=== PATIENT | female | born 1955 | race Caucasian/White ===

== ENCOUNTER 2022-10-12 13:51 | Emergency (ER) | payer MEDICARE, SELFPAY ==
[2022-10-12 13:52] VITALS: BP 116/68; PULSE 79; RESP 18; TEMP 36.6; O2SAT 96; BMI 36.9
--- NOTE | 2022-10-12 14:17 | HMH.EDGENADL ---
Discharge Plan Disposition Patient Disposition: Home, Self-Care Condition: Good Prescriptions Prescriptions: No Action furosemide 20 mg tablet 20 mg PO DAILY aspirin [Aspir-Low] 81 mg tablet,delayed release (DR/EC) 81 mg PO DAILY docusate sodium [Doc-Q-Lace] 100 mg capsule 100 mg PO QHS PRN ergocalciferol (vitamin D2) 50,000 unit capsule 50,000 unit PO QWEEK fluticasone propionate 50 mcg/actuation spray,suspension 2 spray INTRANASAL DAILY umeclidinium [Incruse Ellipta] 62.5 mcg/actuation blister with device 1 inh INHALATION Q24H insulin glargine [Lantus Solostar U-100 Insulin] 100 unit/mL (3 mL) insulin pen 25 unit SUB-Q QHS metoprolol tartrate 25 mg tablet 12.5 mg PO BID multivitamin tablet 1 tab PO QAM pantoprazole 40 mg tablet,delayed release (DR/EC) 40 mg PO DAILY ropinirole 3 mg tablet 3 mg PO QHS insulin regular human [Novolin R Regular U-100 Insuln] 100 unit/mL solution 5 sliding scale dose IM ONCE PRN tacrolimus 0.5 mg capsule 0.5 mg PO DAILY Referrals Follow up/Referrals: Linette Torrez APRN [Primary Care Provider] - See instructions Activity Restrictions/Add. Instructions Additional Instructions/Restrictions: Continue taking the antibiotic. Follow-up with your primary care provider in the office next week. medical review coordinator should be contacting you to arrange follow-up appointment at the transplant clinic. Clinical Impressions Clinical Impression: Acute bronchitis Instructions Patient Instructions: DI for Acute Bronchitis Discharge ED Provider: Harvey Nunez General Adult HPI General Chief complaint: Weakness Stated complaint: cough wheezing tired Time Seen by Provider: 10/12/22 14:03 History of Present Illness HPI narrative: Patient states that she was sent to the emergency department by her primary care provider, Linette Torrez NP. States that she has been sick for 5 weeks. She has a cough producing white to yellow to green sputum. She says that she has fevers overnight . Her whole body hurts. States that she initially saw her former primary care provider, Dr. Machado, but says that she had a falling out with him. She says that she had a cough when she saw him and was told that she should not be there. She therefore changed primary care providers and began seeing Linette Torrez. She says that she has been treated with 2 courses of antibiotics, currently still taking an antibiotic. She says that she has had a chest x-ray or 2 at [facility] in [place]. She says initially was told she had bronchitis, but this past Saturday, 5 days ago, she says that Linette told her she thought she had pneumonia. She did not have a chest x-ray that day. States she had a negative test for COVID and flu on that day. She says she saw her today because she was not improving and was told to come to the emergency department because Linette thought that she needed in the admitted to the hospital for a couple of days for antibiotics. The patient has had a prior liver transplant. Related Data Home Medications Medication Instructions Recorded Confirmed aspirin 81 mg tablet,delayed 81 mg PO DAILY heart health 04/10/18 10/12/22 release (Aspir-Low) docusate sodium 100 mg capsule 100 mg PO QHS PRN 04/10/18 (Doc-Q-Lace) ergocalciferol (vitamin D2) 1,250 50,000 unit PO QWEEK 04/10/18 mcg (50,000 unit) capsule fluticasone propionate 50 2 spray intranasal DAILY 04/10/18 mcg/actuation nasal spray,suspension insulin glargine 100 unit/mL (3 25 unit SQ QHS 04/10/18 mL) subcutaneous pen (Lantus Solostar U-100 Insulin) metoprolol tartrate 25 mg tablet 12.5 mg PO BID heart 04/10/18 10/12/22 multivitamin 1 tab PO QAM 04/10/18 pantoprazole 40 mg tablet,delayed 40 mg PO DAILY GERD 04/10/18 10/12/22 release ropinirole 3 mg tablet 3 mg PO QHS 04/10/18 umeclidinium 62.5 mcg/actuation 1 inh inhalation Q24H
--- NOTE | 2022-10-12 14:25 | XR_ITS ---
FINAL REPORT TECHNIQUE: Chest PA & Lateral CLINICAL HISTORY: cough FINDINGS: 2 views of the chest were performed. The heart size is normal. The mediastinum is within normal limits. There is elevation of the right hemidiaphragm. There is no acute cardiopulmonary process. There are no pleural effusions. There is no pneumothorax. The bony thorax appears intact. There are surgical clips in the right axilla. IMPRESSION: No acute cardiopulmonary process. Reviewed, Interpreted and Dictated by Gavin Summers MD Transcribed by Rodney Cruz Authenticated and [facility]
[2022-10-12 14:32] LABS: Basophils # 0.1 K/mm3 (0-0.2); Basophils % 0.8 % (0.1-2.0); Eosinophils # 0.5 K/mm3 (0.0-0.4); Eosinophils % 5.5 % (0.1-12.0); Hematocrit 42.9 % (37.0-47.0); Hemoglobin 14.2 g/dL (12.2-16.2); Lymphocytes # 2.2 K/mm3 (0.7-4.5); Lymphocytes % 26.2 % (10-50); Mean Corpuscular Hemoglobin 29.7 pg (27.0-31.2); Mean Platelet Volume 8.4 fl (7.4-10.4); Monocytes # 0.5 K/mm3 (0.1-1.0); Monocytes % 6.4 % (1.7-9.3); Neutrophils # 5.1 K/mm3 (1.8-7.8); Neutrophils % 61.1 % (37.0-80.0); Platelet Count 263 K/mm3 (142-424); Red Blood Count 4.77 M/mm3 (4.20-5.40); Red Cell Distribution Width 14.9 % (11.5-17.5); White Blood Count 8.4 K/mm3 (4.8-10.8)
--- NOTE | 2022-10-12 14:32 | PC.NURSE ---
pt to radiology
[2022-10-12 14:34] LABS: Chloride 100 mmol/L (98-107); Potassium 4.2 mmoL/L (3.5-5.1); Sodium 138 mmol/L (136-145)
[2022-10-12 14:37] LABS: Alanine Aminotransferase 28 U/L (12-78); Albumin Level 3.8 g/dl (3.5-5.0); Alkaline Phosphatase 183 U/L (38-126); Anion Gap 16.2 mEq/L (5-15); Aspartate Amino Transferase 42 U/L (14-36); Bilirubin,Total 1.1 mg/dl (0.2-1.3); Blood Urea Nitrogen 12 mg/dl (7-17); Carbon Dioxide 26 mmol/L (22.0-30.0); Creatinine Clearance Estimated 78 mL/min (50-200); Estimated Glomerular Filt Rate 49 ml/min (>60); GFR (African American) 60 ML/MIN (>60); Total Protein,Serum 7.8 g/dl (6.3-8.2)
[2022-10-12 14:38] LABS: Calcium 9.9 mg/dl (8.4-10.2); Glucose 207 mg/dl (74-100)
[2022-10-12 14:55] LABS: Coronavirus 19, PCR Not Detected (NotDetected); Influenza A, PCR Not Detected (NotDetected); Influenza B, PCR Not Detected (NotDetected)
[2022-10-12 15:15] LABS: Lactic Acid 2.1 mmol/L (0.7-2.1)
[2022-10-12 15:19] VITALS: O2SAT 96
[2022-10-12 15:31] VITALS: BP 120/69; PULSE 76; RESP 18; O2SAT 94
--- NOTE | 2022-10-12 15:38 | PC.NURSE ---
checked on pt at this time, family at BS. Pt states no needs at this time, call light within reach
--- NOTE | 2022-10-12 15:47 | PC.NURSE ---
BHARGAV GARCIA speaking with [facility]
--- NOTE | 2022-10-12 15:48 | PC.NURSE ---
Dr Nunez talking to [facility] Dr Pinto about patient.
[2022-10-12 16:10] VITALS: BP 122/62; PULSE 74; RESP 18; TEMP 36.6; O2SAT 96
[2022-10-12 18:45] LABS: Reflex Lactic Add Lactic Reflex
== END 2022-10-12 16:10 | disposition home or self-care (01) ==
PROVIDERS: Emergency Provider Emergency Medicine; PCP Nurse Practitioner Family
DX: J40 Bronchitis, not specified as acute or chronic (principal)
CPT/HCPCS: 71046; 80053; 83605; 85025; 87040; 99284; C9803; U0003; U0005

== ENCOUNTER → 2023-03-30 15:52 | Outpatient (CLI) | payer MEDICARE, SELFPAY ==
[2023-03-30 16:39] LABS: Blood Urea Nitrogen 13 mg/dl (7-17); Estimated Glomerular Filt Rate 41 ml/min (>60); GFR (African American) 49 ML/MIN (>60)
== END ==
PROVIDERS: PCP Nurse Practitioner Family; Visit Provider Nurse Practitioner Family
DX: E11.69 Type 2 diabetes mellitus with other specified complication (principal); E66.9 Obesity, unspecified; Z68.38 Body mass index [BMI] 38.0-38.9, adult; Z79.4 Long term (current) use of insulin
CPT/HCPCS: 82565; 84520

== ENCOUNTER → 2023-04-02 12:23 | Outpatient (CLI) | payer MEDICARE, SELFPAY ==
--- NOTE | 2023-04-02 12:29 | CA_ITS ---
FINAL REPORT CLINICAL HISTORY: DIZZINESS FINDINGS: An ultrasound of the carotid arteries was performed. Duplex Doppler evaluation with spectral analysis was performed. The peak systolic velocity of the right common carotid artery is 95 cm/s. The peak systolic velocity of the right internal carotid artery is 135 cm/s and end diastolic velocity 31 cm/s. A small amount of plaque is present. The right external carotid artery is patent. The right vertebral artery is patent with antegrade flow. ICA/CCA ratio: 1.7 The peak systolic velocity of the left common carotid artery is 137 cm/s. The peak systolic velocity of the left internal carotid artery is 113 cm/s and end diastolic velocity 27 cm/s. A small amount of plaque is present. The left external carotid artery is patent. The left vertebral artery is patent with antegrade flow. ICA/CCA ratio: 1.0 Bilateral patent vertebral arteries with antegrade flow. IMPRESSION: Less than 50% bilateral carotid stenosis. Reviewed, Interpreted and Dictated by Marcie Valle MD Transcribed by Rodney Cruz Authenticated and [facility]
--- NOTE | 2023-04-02 13:35 | MR_ITS ---
FINAL REPORT TECHNIQUE: Multiplanar MR, without and with gadolinium enhancement CLINICAL HISTORY: dizziness, gaze palsy; special attn brain stem x 3 months 21 ml prohance FINDINGS: Diffusion sequences show no signal abnormality to indicate acute infarct. There is mild age-appropriate atrophy. There are few scattered white matter signal changes, likely due to mild chronic microvascular ischemia. No mass, hemorrhage or edema is seen. Ventricles are normal. Major vascular flow voids are intact. The brainstem and cerebellum are unremarkable. Following contrast administration, no mass or abnormal enhancement is seen. IMPRESSION: Atrophy and chronic the ischemic changes. Reviewed, Interpreted and Dictated by Marcie Valle MD Transcribed by Kimberly Arambula Authenticated and [facility]
--- NOTE | 2023-04-02 13:39 | MR_ITS ---
FINAL REPORT TECHNIQUE: 3-D [id number] sequences without contrast CLINICAL HISTORY: eval posterior circulation FINDINGS: The distal internal carotid arteries are unremarkable. MCAs and ACAs are unremarkable. Basilar artery is widely patent. surgical training specialist are intact. No aneurysm is seen. IMPRESSION: Unremarkable MRA head Reviewed, Interpreted and Dictated by Marcie Valle MD Transcribed by Kimberly Arambula Authenticated and [facility]
== END ==
PROVIDERS: PCP Nurse Practitioner Family; Visit Provider Nurse Practitioner Family
DX: R42 Dizziness and giddiness (principal); H51.0 Palsy (spasm) of conjugate gaze; R41.3 Other amnesia; R51.9 Headache, unspecified; Z85.3 Personal history of malignant neoplasm of breast; E11.69 Type 2 diabetes mellitus with other specified complication; E66.9 Obesity, unspecified; E72.20 Disorder of urea cycle metabolism, unspecified; I11.9 Hypertensive heart disease without heart failure; R09.02 Hypoxemia; Z94.4 Liver transplant status; Z99.81 Dependence on supplemental oxygen; Z79.4 Long term (current) use of insulin; Z68.38 Body mass index [BMI] 38.0-38.9, adult
CPT/HCPCS: 70544; 70553; 93880; A9576

== ENCOUNTER → 2023-04-10 07:46 | Outpatient (CLI) | payer MEDICARE, SELFPAY ==
--- NOTE | 2023-04-10 07:46 | MR_ITS ---
FINAL REPORT CLINICAL HISTORY: eval for CVT, noncontrib MRI, MRA dizziness, headaches, hallucinations 21ml prohance FINDINGS: Multiple projection images of the brain venous vasculature were obtained. The major dural sinuses have an unremarkable appearance. No venous abnormality is identified. IMPRESSION: Unremarkable MR venogram of the head. Authenticated and [facility]
--- NOTE | 2023-04-10 07:46 | MR_ITS ---
FINAL REPORT CLINICAL HISTORY: eval for stenosis FINDINGS: Multiple projection images of the neck arterial vasculature were obtained without contrast. The raw data images were also reviewed. The right common carotid artery has an unremarkable appearance without evidence of stenosis or occlusion. The right internal carotid artery has an unremarkable appearance without evidence of stenosis or occlusion. The right external carotid artery is patent. The right vertebral artery is patent without evidence of stenosis. The left common carotid artery has an unremarkable appearance without evidence of stenosis or occlusion. The left internal carotid artery is patent without evidence of stenosis or occlusion. The left external carotid artery is patent. The left vertebral artery is patent without evidence of stenosis. IMPRESSION: Unremarkable MR angiogram of the neck without evidence of stenosis or occlusion. Authenticated and [facility]
[2023-04-10 08:21] LABS: Chloride 100 mmol/L (98-107); Potassium 4.1 mmoL/L (3.5-5.1); Sodium 137 mmol/L (136-145)
[2023-04-10 08:24] LABS: Alanine Aminotransferase 33 U/L (12-78); Albumin Level 3.4 g/dl (3.5-5.0); Alkaline Phosphatase 185 U/L (38-126); Anion Gap 15.1 mEq/L (5-15); Aspartate Amino Transferase 58 U/L (14-36); Bilirubin,Total 0.7 mg/dl (0.2-1.3); Blood Urea Nitrogen 18 mg/dl (7-17); Carbon Dioxide 26 mmol/L (22.0-30.0); Estimated Glomerular Filt Rate 49 ml/min (>60); GFR (African American) 60 ML/MIN (>60); Globulin 3.3 g/dL (1.3-3.2); Total Protein,Serum 6.7 g/dl (6.3-8.2)
[2023-04-10 08:25] LABS: Ammonia 41 umol/L (9-30); Calcium 9.8 mg/dl (8.4-10.2); Glucose 183 mg/dl (74-100)
[2023-04-10 08:30] LABS: Basophils % 0.5 % (0.1-2.0); C-Reactive Protein 4.8 mg/L (0-4); Eosinophils # 0.3 K/mm3 (0.0-0.4); Eosinophils % 5.9 % (0.1-12.0); Hematocrit 38.9 % (37.0-47.0); Hemoglobin 12.7 g/dL (12.2-16.2); Lymphocytes # 1.4 K/mm3 (0.7-4.5); Lymphocytes % 29.4 % (10-50); Mean Corpuscular HGB Conc 32.7 g/dL (31.8-35.4); Mean Corpuscular Hemoglobin 28.8 pg (27.0-31.2); Mean Corpuscular Volume 88.2 fl (81-99); Mean Platelet Volume 8.1 fl (7.4-10.4); Monocytes # 0.4 K/mm3 (0.1-1.0); Monocytes % 7.7 % (1.7-9.3); Neutrophils # 2.7 K/mm3 (1.8-7.8); Neutrophils % 56.4 % (37.0-80.0); Platelet Count 232 K/mm3 (142-424); Red Blood Count 4.41 M/mm3 (4.20-5.40); Red Cell Distribution Width 14.8 % (11.5-17.5); White Blood Count 4.7 K/mm3 (4.8-10.8)
[2023-04-10 08:56] LABS: Thyroid Stimulating Hormone 1.92 uIU/mL (0.465-4.68)
[2023-04-10 09:00] LABS: Ferritin 120 ng/ml (11.1-264)
[2023-04-10 09:07] LABS: Hemoglobin A1C 7.1 % (4.0-6.0)
[2023-04-10 09:42] LABS: Erythrocyte Sedimentation Rate 84 mm/hr (0-30)
[2023-04-10 10:00] LABS: Vitamin B12 736 pg/mL (239-931)
[2023-04-11 15:05] LABS: Rapid Plasma Reagin Ab Titer Non Reactive (NonRea<1:1)
[2023-04-13 21:04] LABS: Antinuclear Antibodies (ANA) Negative
[2023-04-14 04:07] LABS: Vitamin B1 146.4 nmol/L (66.5-200.0)
== END ==
PROVIDERS: PCP Nurse Practitioner Family; Visit Provider Nurse Practitioner Family
DX: R42 Dizziness and giddiness (principal); H51.0 Palsy (spasm) of conjugate gaze; R41.3 Other amnesia; R51.9 Headache, unspecified; E11.69 Type 2 diabetes mellitus with other specified complication; E66.9 Obesity, unspecified; E72.20 Disorder of urea cycle metabolism, unspecified; I11.9 Hypertensive heart disease without heart failure; R09.02 Hypoxemia; Z85.3 Personal history of malignant neoplasm of breast; Z94.4 Liver transplant status; Z99.81 Dependence on supplemental oxygen; Z86.39 Personal history of other endocrine, nutritional and metabolic disease; R60.0 Localized edema; Z79.4 Long term (current) use of insulin; Z68.34 Body mass index [BMI] 34.0-34.9, adult
CPT/HCPCS: 36415; 70546; 70547; 80053; 82140; 82565; 82607; 82728; 82746; 83036; 84425; 84443; 84520; 85025; 85651; 86038; 86140; 86225; 86235; 86593; 94762; A9576

== ENCOUNTER 2023-10-22 13:21 | Emergency (ER) | payer MEDICARE, SELFPAY ==
[2023-10-22] VITALS (24 sets, daily range): BP systolic 106–153; BP diastolic 57–91; PULSE 79–118; RESP 20; TEMP 36.7; O2SAT 95–99; BMI 37.0
--- NOTE | 2023-10-22 13:30 | ECG_ITS ---
APPROVED REPORT Exam: Resting ECG HR:110 bpm ECG Measurements Heart Rate 110 AXES QRSd 93 QRS 0 QT 334 T 62 QTc 399 Conclusion ATRIAL FIBRILLATION WITH RAPID VENTRICULAR RESPONSE ABNORMAL RHYTHM ECG UNCONFIRMED REPORT Electronically signed by : Agustín Vaughn MD 10/23/2023 18:26:24
--- NOTE | 2023-10-22 13:34 | PC.NURSE ---
Limb alert band placed on patients right wrist.
--- NOTE | 2023-10-22 14:01 | XR_ITS ---
PROCEDURE INFORMATION: Exam: XR Chest Exam date and time: 10/22/2023 4:27 PM Age: 68 years old Clinical indication: Shortness of breath and other: Chest pain; Additional info: Choking earlier, SOA TECHNIQUE: Imaging protocol: Radiologic exam of the chest. Views: 2 views. COMPARISON: CR XR CHEST 2V 10/12/2022 2:21 PM FINDINGS: Lungs: No evidence of acute pulmonary disease or infiltrates; lung meza appear clear. Pleural spaces: No evidence of pleural effusion, pneumothorax, or pleural thickening in the visualized pleural spaces. Heart/Mediastinum: No evidence of mediastinal widening or cardiac silhouette enlargement; the mediastinum and heart appear within normal limits for contour and size. Diaphragm: There is elevation of the right hemidiaphragm. Bones/joints: There are degenerative changes of the thoracic spine. Soft tissues: Right axillary surgical clips. IMPRESSION: No dense parenchymal consolidation, pleural effusion, or pneumothorax.
--- NOTE | 2023-10-22 14:31 | HMH.EDGENADL ---
Discharge Plan Disposition Patient Disposition: Home, Self-Care Condition: Good Prescriptions Prescriptions: No Action furosemide 20 mg tablet 20 mg PO DAILY aspirin [Aspir-Low] 81 mg tablet,delayed release (DR/EC) 81 mg PO DAILY docusate sodium [Doc-Q-Lace] 100 mg capsule 100 mg PO QHS PRN fluticasone propionate 50 mcg/actuation spray,suspension 2 spray INTRANASAL DAILY metoprolol tartrate 25 mg tablet 12.5 mg PO BID multivitamin tablet 1 tab PO QAM insulin regular human [Novolin R Regular U100 Insulin] 100 unit/mL solution 5 sliding scale dose IM ONCE PRN tacrolimus 0.5 mg capsule 0.5 mg PO DAILY insulin glargine [Lantus Solostar U-100 Insulin] 100 unit/mL (3 mL) insulin pen 28 unit SUB-Q QHS clopidogrel 75 mg tablet 75 mg PO DAILY Patient Comments: TAKE 1 TABLET BY MOUTH IN THE MORNING ropinirole 4 mg tablet 4 mg PO DAILY Patient Comments: TAKE ONE (1) TABLET EVERY DAY BY MOUTH IN THE EVENING. Referrals Follow up/Referrals: Linette Torrez APRN [Primary Care Provider] - Enter time for follow up Activity Restrictions/Add. Instructions Additional Instructions/Restrictions: You have new onset atrial fibrillation. This causes an increased risk of stroke. Given your history of liver transplant and and the fact that you take both aspirin and Plavix, you are at increased risk of bleeding with additional anticoagulation. The decision for anticoagulation is best made by your cardiology/liver team. I recommend that you follow-up with them as soon as possible. Recommend increasing your metoprolol dosing to 25 mg twice daily with goal of keeping her heart rate below 110. Monitor for low blood pressure and low heart rate. If your heart rate continues to be consistently over 110 recommend returning to ER or seeing your primary teams. Please return emergency department if you develop any new or worsening symptoms or become concerned for your health. Clinical Impressions Clinical Impression: New onset a-fib, SOB (shortness of breath) Discharge ED Provider: Alejo Pool Adult HPI <Wade Francisco MD - Last Filed: 10/22/23 17:21> General Chief complaint: Shortness of Breath/Dyspnea Stated complaint: SHORTNESS OF BREATH Time Seen by Provider: 10/22/23 13:27 Mode of Arrival: EMS Source of Information: Patient and EMS Limitations: No Limitations Description of Symptoms (Recalled from ER Triage Doc. by RN): Patient states she was eating lunch and choked on her lemonade, states her coworker gave her the heimlich and since she has been short of breath. Patient reports she has been having some chest pain over the last couple days but has not been seen for it. History of Present Illness HPI narrative: The patient presents with a chief complaint of shortness of breath and elevated heart rate following a choking incident during lunch. They report having a cold approximately four weeks ago and have not felt well since. The patient experienced difficulty swallowing medication this morning and has had constant chest pain for the last three days, centrally located and sometimes radiating to the shoulder. They also report shortness of breath and pain upon taking deep breaths. The patient has been coughing up thick mucus without hemoptysis. 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 They are currently taking Clopidogrel and aspirin for atrial fibrillation management. Additional symptoms include recent disorientation observed by the patient's friend and severe pain in their side for the past two weeks, which has caused them to cry. No specific event or injury has been reported that may have triggered these symptoms. Related Data Home Medications Medication Instructions Recorded Confirmed
[2023-10-22 15:03] LABS: Basophils # 0.1 K/mm3 (0-0.2); Basophils % 0.5 % (0.1-2.0); Eosinophils # 0.2 K/mm3 (0.0-0.4); Hemoglobin 13.3 g/dL (12.2-16.2); Lymphocytes # 1.4 K/mm3 (0.7-4.5); Lymphocytes % 14.7 % (10-50); Mean Corpuscular HGB Conc 33.2 g/dL (31.8-35.4); Mean Corpuscular Hemoglobin 29.4 pg (27.0-31.2); Mean Corpuscular Volume 88.5 fl (81-99); Mean Platelet Volume 8.2 fl (7.4-10.4); Monocytes # 0.5 K/mm3 (0.1-1.0); Monocytes % 5.3 % (1.7-9.3); Neutrophils # 7.4 K/mm3 (1.8-7.8); Neutrophils % 77.4 % (37.0-80.0); Platelet Count 246 K/mm3 (142-424); Red Blood Count 4.52 M/mm3 (4.20-5.40); Red Cell Distribution Width 15.2 % (11.5-17.5); White Blood Count 9.6 K/mm3 (4.8-10.8)
[2023-10-22 15:04] LABS: Chloride 103 mmol/L (98-107); Potassium 4.1 mmoL/L (3.5-5.1); Sodium 134 mmol/L (136-145)
[2023-10-22 15:07] LABS: Alanine Aminotransferase 20 U/L (12-78); Albumin Level 3.5 g/dl (3.5-5.0); Albumin/Globulin Ratio 0.9 (1.1-1.8); Alkaline Phosphatase 207 U/L (38-126); Anion Gap 10.1 mEq/L (5-15); Aspartate Amino Transferase 40 U/L (14-36); Bilirubin,Total 1.1 mg/dl (0.2-1.3); Blood Urea Nitrogen 12 mg/dl (7-17); Carbon Dioxide 25 mmol/L (22.0-30.0); Creatinine Clearance Estimated 71 mL/min (50-200); Estimated Glomerular Filt Rate 45 ml/min (>60); GFR (African American) 54 ML/MIN (>60); Globulin 3.8 g/dL (1.3-3.2); INR 1.07 (0.9-1.1); Prothrombin Time 11.5 seconds (10.1-12.5); Total Protein,Serum 7.3 g/dl (6.3-8.2)
[2023-10-22 15:08] LABS: Calcium 8.7 mg/dl (8.4-10.2); Glucose 250 mg/dl (74-100)
[2023-10-22 15:17] LABS: NT Pro Brain Natriuretic Pep. 2130 pg/mL (0-125)
[2023-10-22 15:20] LABS: Troponin I < 0.01 ng/ml (0.00-0.034)
[2023-10-22 15:25] LABS: Free T4 (Free Thyroxine) 1.68 ng/dl (0.78-2.19)
[2023-10-22 17:30] LABS: D-Dimer 1.17 ug/mL (0.0-0.5)
--- NOTE | 2023-10-22 17:54 | CT_ITS ---
PROCEDURE INFORMATION: Exam: CTA Chest With Contrast Exam date and time: 10/22/2023 6:39 PM Age: 68 years old Clinical indication: Shortness of breath and other: Sp, elevated dimer; Additional info: SOA, cp, elevated dimer, new afib TECHNIQUE: Imaging protocol: Computed tomographic angiography of the chest with contrast. Exam focused on the arteries. 3D rendering (Not supervised by radiologist): MIP and/or 3D reconstructed images were created by the technologist. Radiation optimization: All CT scans at this facility use at least one of these dose optimization techniques: automated exposure control; mA and/or kV adjustment per patient size (includes targeted exams where dose is matched to clinical indication); or iterative reconstruction. Contrast material: ISOVUE 370; Contrast volume: 70 ml; Contrast route: INTRAVENOUS (IV); REPORTING DATA: Count of CT and Cardiac NM exams in prior 12 months: This patient has received 0 known CTs and 0 known cardiac nuclear medicine studies in the 12 months prior to the current study. COMPARISON: CR XR CHEST 2V 10/22/2023 4:27 PM FINDINGS: Pulmonary arteries: There is suboptimal opacification of pulmonary arteries due to contrast bolus timing. Aorta: Regions of atherosclerotic vascular calcification involving the aortic arch. Lungs: Focal cluster of juxtapleural and pleural-based nodularities 4 mm or less in size. Right lung apex. Findings most likely inflammatory in etiology. For patients at low risk (minimal or absent history of smoking and of other known risk factors), no routine follow-up is indicated. For patients at high risk (history of smoking or of other known risk factors), consider optional CT Chest at 12 months. (Reference: Tre). Postinflammatory scarring right middle lobe. Associated minimal pleural reactive change. Pleural spaces: See Lungs finding. Heart: Unremarkable. No cardiomegaly. No pericardial effusion. Coronary arteries: Coronary artery calcification Lymph nodes: Unremarkable. No enlarged lymph nodes. Bones/joints: Unremarkable. No acute fracture. Soft tissues: Surgical clips in the right axilla. Markers placed in the retroareolar region right breast. IMPRESSION: 1. No large or central pulmonary embolus. Evaluation of the peripheral pulmonary arteries is limited. 2. Focal cluster of juxtapleural and pleural-based nodularities 4 mm or less in size. Right lung apex. Findings most likely inflammatory in etiology. For patients at low risk (minimal or absent history of smoking and of other known risk factors), no routine follow-up is indicated. For patients at high risk (history of smoking or of other known risk factors), consider optional CT Chest at 12 months. (Reference: Tre). 3. Postinflammatory scarring right middle lobe. Associated minimal pleural reactive change. REFERENCES: Tre Barraza, et al. Guidelines for Management of Incidental Pulmonary Nodules Detected on CT Images: From the Fleischner Society 2017. Radiology. 2017;284(1):228-243.
--- NOTE | 2023-10-22 18:17 | PC.NURSE ---
pt to restroom
== END 2023-10-22 20:09 | disposition home or self-care (01) ==
LOC: ER 14:02 → CATHLAB 14:44 → ER 19:55
PROVIDERS: Emergency Medicine; Emergency Provider Emergency Medicine; PCP Nurse Practitioner Family
DX: I48.91 Unspecified atrial fibrillation (principal); R07.89 Other chest pain; R06.02 Shortness of breath; R05.8 Other specified cough; R07.1 Chest pain on breathing; I35.0 Nonrheumatic aortic (valve) stenosis; E11.9 Type 2 diabetes mellitus without complications; G25.81 Restless legs syndrome; Z79.4 Long term (current) use of insulin; Z79.01 Long term (current) use of anticoagulants; Z94.4 Liver transplant status
CPT/HCPCS: 71046; 71275; 80053; 83880; 84439; 84484; 85025; 85378; 85610; 93005; 99285; Q9967